=== PATIENT | male | born 1990 | race Caucasian/White ===

== ENCOUNTER 2016-08-11 04:17 | Emergency (ER) | payer OTHER ==
[~2016-08-11] VITALS: Ht 162.6 cm; Wt 100.0 kg
[~2016-08-11 04:17] MED LIST: BISA-57 PO; CIPR500T4 PO; TAMS-14 PO
[2016-08-11 04:30] VITALS: Ht 162.6 cm; Wt 100.0 kg
--- NOTE | 2016-08-11 05:27 | ERD ---
ER Documentation Chief Complaint Date/Time DATE: 08/11/16 TIME: 05:23 Chief Complaint chest congestion x 1 week, with sob HPI 26-year-old male presents here in emergency department for complaints of episodes of shortness of breath at night, patient also has the same at this time after eating. Patient denies any pain. Patient states whenever he lies down he feels short of breath at times. He cannot go back to bed because is afraid of not being able to breathe. Patient denies any chest pain. Patient denies any palpitations or regular heartbeat. Patient denies any dizziness. Patient's complaining of nausea at times. ROS All systems reviewed and are negative except as per history of present illness. Medications Home Meds Active Scripts Bisacodyl* (Dulcolax*) 5 Mg Tablet.dr, 10 MG PO DAILY Y for CONSTIPATION, #20 TAB Prov:ARI FRAZIER DO 07/21/15 Tamsulosin Hcl* (Flomax*) 0.4 Mg Cap.er.24h, 0.4 MG PO QPM, #30 CAP Prov:ARI FRAZIER DO 07/21/15 Ciprofloxacin Hcl* (Ciprofloxacin Hcl*) 500 Mg Tablet, 500 MG PO BID for 21 Days , TAB Prov:ARI FRAZIER DO 07/21/15 Allergies Allergies: Coded Allergies: No Known Allergy (Unverified , 07/21/15) PMhx/Soc Medical and Surgical Hx: pt denies Medical Hx, pt denies Surgical Hx History of Surgery: No Anesthesia Reaction: No Hx Neurological Disorder: No Hx Respiratory Disorders: No Hx Cardiac Disorders: No Hx Psychiatric Problems: No Hx Miscellaneous Medical Probl: No Hx Alcohol Use: Yes Hx Substance Use: Yes (marijuana) Hx Tobacco Use: Yes Smoking Status: Never smoker FmHx Family History: No coronary disease, No diabetes, No other Physical Exam Vitals Vital Signs Date Time Temp Pulse Resp B/P Pulse Ox O2 Delivery O2 Flow Rate FiO2 08/11/16 04:30 97.5 84 20 132/73 100 Physical Exam GENERAL: The patient is well developed and appropriate for usual state of health, in no apparent distress. CHEST: Clear to auscultation bilaterally. There are no rales, wheezes or rhonchi. HEART: Regular rate and rhythm. No murmurs, clicks, rubs or gallops. No S3 or S4. ABDOMEN: Soft, nontender and nondistended. Good bowel sounds. No rebound or guarding. No gross peritonitis. No gross organomegaly or masses. No Maher sign or McBurney point tenderness. BACK: No midline or flank tenderness. EXTREMITIES: Equal pulses bilaterally. There is no peripheral clubbing, cyanosis or edema. No focal swelling or erythema. Full range of motion. Grossly neurovascularly intact. NEURO: Alert and oriented. Cranial nerves 2-12 intact. Motor strength in all 4 extremities with 5/5 strength. Sensation grossly intact. Normal speech and gait. SKIN: There is no apparent rash or petechia. The skin is warm and dry. HEMATOLOGIC AND LYMPHATIC: There is no evidence of excessive bruising or lymphedema. No gross cervical, axillary, or inguinal lymphadenopathy. Results 24 hrs EKG was done, read by me and is normal sinus rhythm at a rate of 68, normal axis , there is no ST changes or changes in the EKG that indicates any cardiac emergencies at this time. Patient's EKG was also reviewed by Dr. Keane. Impression: no acute findings on EKG PROCEDURE: CHEST - 1 VIEW CLINICAL INDICATION: 26-year-old male with cough. TECHNIQUE: A single frontal AP upright semi-erect view of the chest was performed. The images were reviewed on a PACS workstation. COMPARISON: None. FINDINGS: The cardiomediastinal silhouette has a normal appearance. There is a shallow inspiration. There is no evidence for an infiltrate. The pulmonary vascularity is within normal limits. There is no evidence for pneumothorax or pneumomediastinum. The osseous structures are intact. IMPRESSION: No evidence for active cardiopulmonary disease. .Danial Yeager MD, Date Time Electronically viewed and signed by .Danial Yeager MD, on 08/11/2016 05:26 .M/ CC: LESLIE HENDRICKS NP Procedures/MDM Medical Decision Making: Patient symptoms nonspecific at this time, most likely can be from acid reflux disease, since it is worse upon lying down and also worse after eating. It can be also from anxiety.. There is low suspicion for cardiopulmonary emergencies at this time. Patient has low risk factors. EKG is normal, there is no changes in the EKG that indicates cardiac emergencies. Chest X-ray does not show cardiopulmonary emergencies at this time. There is low suspicion for aortic aneurysm, myocardial infarction, pneumothorax, pleural effusion, pulmonary embolism, or any other cardiopulmonary emergencies at this time. Prescription was given for omeprazole, Mylanta, is advised follow-up with primary care doctor in 1-2 days for reevaluation of symptoms. Patient was advised to return to emergency department for any worsening symptoms. Departure Diagnosis: Primary Impression: Shortness of breath Condition: Stable Patient Instructions: Coping with Shortness of Breath: Controlling Stress, Gastroesophageal Reflux Disease (GERD) LESLIE HENDRICKS NP August 11, 2016 05:27
--- NOTE | 2016-08-11 05:27 | RADRPT ---
PROCEDURE: CHEST - 1 VIEW CLINICAL INDICATION: 26-year-old male with cough. TECHNIQUE: A single frontal AP upright semi-erect view of the chest was performed. The images wer e reviewed on a PACS workstation. COMPARISON: None. FINDINGS: The cardiomediastinal silhouette has a normal appearance. There is a shallow inspiration. There is n o evidence for an infiltrate. The pulmonary vascularity is within normal limits. There is no eviden ce for pneumothorax or pneumomediastinum. The osseous structures are intact. IMPRESSION: No evidence for active cardiopulmonary disease. .Danial Yeager MD, Date Time Electronically viewed and signed by .Danial Yeager MD, on 08/11/2016 05:26 .M/
[2016-08-11] MEDS ORDERED: OMEP20CA16 PO (05:40)
[2016-08-11] MEDS ORDERED: MAG-19 PO (05:40)
== END 2016-08-11 06:04 | disposition home or self-care (01) ==
LOC: FTE 04:17
DX: R06.02 Shortness of breath (principal); Z87.891 Personal history of nicotine dependence
CPT/HCPCS: 71010; 93005; Z7502